=== PATIENT | male | born 1975 | race Caucasian/White ===

== ENCOUNTER 2018-08-28 13:04 | Emergency (ER) | payer MEDICAID ==
[~2018-08-28] VITALS: Ht 170.2 cm; Wt 74.0 kg
[2018-08-28] MEDS ORDERED: HYDROCODONE/ACETAMINOPHEN 5/325MG TABLET PO ONE (14:15)
[2018-08-28 17:00] VITALS: BP 123/86
[2018-08-28] MEDS ORDERED: TETANUS, DIPHTHERIA, PERTUSSIS VAC/PF 0.5ML (>7YR OLD) IM ONE (17:00)
== END 2018-08-28 17:36 | disposition home or self-care (01) ==
LOC: ER 13:04
DX: S09.8XXA Other specified injuries of head, initial encounter (principal); M25.521 Pain in right elbow; M25.511 Pain in right shoulder; V29.9XXA Motorcycle rider (driver) (passenger) injured in unspecified traffic accident, initial encounter; Y93.89 Activity, other specified; Y92.89 Other specified places as the place of occurrence of the external cause; Y99.8 Other external cause status
CPT/HCPCS: 73030; 73080; 90471; 90715; 99284

== ENCOUNTER 2019-01-14 14:33 | Emergency (ER) | payer MEDICAID ==
[~2019-01-14] VITALS: Ht 175.3 cm; Wt 75.0 kg
[2019-01-14 19:00] VITALS: BP 125/82
== END 2019-01-14 19:02 | disposition home or self-care (01) ==
LOC: ER 14:33
DX: S00.83XA Contusion of other part of head, initial encounter (principal); Y04.2XXA Assault by strike against or bumped into by another person, initial encounter; Y93.89 Activity, other specified; Y92.89 Other specified places as the place of occurrence of the external cause; M47.22 Other spondylosis with radiculopathy, cervical region
CPT/HCPCS: 70486; 99284

== ENCOUNTER 2019-03-02 00:07 | Emergency (ER) | payer MEDICAID ==
[~2019-03-02] VITALS: Ht 172.7 cm; Wt 73.0 kg
[2019-03-02] MEDS ORDERED: FLUORESCEIN SODIUM 1MG/STRIP LEFTEYE ONE (02:15)
[2019-03-02] MEDS ORDERED: TETRACAINE 0.5% OPHTH DROPS 4ML LEFTEYE ONE (02:15)
[2019-03-02 03:16] VITALS: BP 122/79
== END 2019-03-02 03:18 | disposition left against medical advice (07) ==
LOC: ER 00:42
DX: H57.89 Other specified disorders of eye and adnexa (principal)
CPT/HCPCS: 99283

== ENCOUNTER 2019-08-10 15:32 | Emergency (ER) | payer MEDICAID ==
[~2019-08-10] VITALS: Ht 175.3 cm; Wt 73.0 kg
[2019-08-10] MEDS ORDERED: IBUPROFEN 600MG TABLET PO ONE (18:15)
[2019-08-10 19:15] VITALS: BP 110/80
== END 2019-08-10 19:16 | disposition home or self-care (01) ==
LOC: ER 15:32
DX: M79.644 Pain in right finger(s) (principal)
CPT/HCPCS: 73130; 99283

== ENCOUNTER 2020-11-06 18:56 | Emergency (ER) | payer MEDICAID ==
[~2020-11-06] VITALS: Ht 172.7 cm; Wt 73.0 kg
[2020-11-06 19:09] VITALS: BP 142/86
[2020-11-06 19:54] LABS: CLARITY URINE CLEAR (CLEAR); COLOR URINE YELLOW (YELLOW); KETONES URINE TRACE (NEGATIVE); LEUKOCYTE ESTERASE URINE TRACE (NEGATIVE); NITRITE URINE NEGATIVE (NEGATIVE); OCCULT BLOOD URINE NEGATIVE (NEGATIVE); PH URINE 6.5 (4.5-8.0); PROTEIN URINE NEGATIVE (NEGATIVE); SPECIFIC GRAVITY URINE 1.022 (1.005-1.030)
== END 2020-11-06 20:32 | disposition left against medical advice (07) ==
LOC: ER 18:56
DX: N50.811 Right testicular pain (principal)
CPT/HCPCS: 81003; 99283